=== PATIENT | male | born 1975 | race Caucasian/White ===

== ENCOUNTER 2017-05-11 19:03 | Emergency (ER) | payer BC ==
[~2017-05-11] VITALS: Ht 182.9 cm; Wt 117.0 kg
[2017-05-11 19:57] VITALS: BP 146/82
--- NOTE | 2017-05-11 20:02 | NUR ---
TO LOBBY, A/W, OLGA, ZAK, ANA NOTED
--- NOTE | 2017-05-11 20:43 | NUR ---
TO ER OF1
--- NOTE | 2017-05-11 20:45 | NUR ---
PATIENT IS A 41 Y/O MALE WHO PRESENTS TO THE ED C/O BACK PAIN. PT STATES, "I THINK IT MIGHT BE SCIATICA." PT REPORTS 9/10 SHARP LOWR BACK PAIN THAT RADIATES DOWN THE LEG. PT DENIES CP, SOB, N/V/D. PT AAOX4, RR EVEN/UNLABORED. PT REPOSITIONED FOR COMFORT, BED IN LOWEST POSITION. ER MD DR. BEASLEY NOTIFIED. WILL CONTINUE TO MONITOR.
[2017-05-11] MEDS ORDERED: KETOROLAC 60 MG/2 ML VIAL IM ONE (23:20)
[2017-05-11 23:58] VITALS: BP 135/80
--- NOTE | 2017-05-11 23:58 | NUR ---
Patient discharged with v/s stable. Written and verbal after care instructions given and explained. Patient alert, oriented and verbalized understanding of instructions. Ambulatory with steady gait. All questions addressed prior to discharge. ID band removed. Patient advised to follow up with PMD. Rx of MOTRIN, VALIUM AND NORCO given. Patient educated on indication of medication including possible reaction and side effects. Opportunity to ask questions provided and answered.
== END 2017-05-11 23:58 | disposition home or self-care (01) ==
LOC: MED 19:03
DX: M54.5 Low back pain (principal)
CPT/HCPCS: 72100; 96372; 99284; J1885